=== PATIENT | male | born 1990 | race American Indian/Alaskan Native ===

== ENCOUNTER 2019-01-18 20:50 | Emergency (ER) | payer SELFPAY ==
[2019-01-18 21:04] VITALS: RESP 18; BMI 22.1
[2019-01-18] MEDS ORDERED: Albuterol 0.083% Inhal Sol (2.5 mg/3 mL) UD IH STA (21:17)
--- NOTE | 2019-01-18 21:34 | ED PDOC ---
Arrival/HPI - General Historian: Patient - History of Present Illness Narrative History of Present Illness (Text): 01/18/19 21:23 28-year-old male presents today with a 2 week history of cough, nasal congestion, sore throat, and subjective fevers. no cp or sob. pt states cough is productive. no abdominal pain. no vomiting/diarrhea. no back pain. no medications taken at home. <Britney Herrera - Last Filed: 01/18/19 23:03> <Domingo High - Last Filed: 01/18/19 23:25> - General Chief Complaint: Cough, Cold, Congestion Time Seen by Provider: 01/18/19 20:53 Past Medical History - Provider Review Nursing Documentation Reviewed: Yes - Travel History Have you recently traveled outside [place] w/in the past 3 mons?: No - Pulmonary Hx Asthma: Yes - Psychiatric Hx Substance Use: Yes <Britney Herrera - Last Filed: 01/18/19 23:03> Family/Social History - Physician Review Nursing Documentation Reviewed: Yes Family/Social History: Unknown Family HX Smoking Status: Never Smoked Hx Alcohol Use: Yes Frequency of alcohol use: Socially Hx Substance Use: Yes Substance used: marijuana <Britney Herrera - Last Filed: 01/18/19 23:03> Allergies/Home Meds <Britney Herrera - Last Filed: 01/18/19 23:03> <Domingo High - Last Filed: 01/18/19 23:25> Allergies/Adverse Reactions: Allergies No Known Allergies Allergy (Verified 01/18/19 21:03) Review of Systems - Review of Systems Constitutional: Fevers. absent: Fatigue ENT: Sore Throat, Sinus Congestion Respiratory: Cough. absent: SOB Cardiovascular: absent: Chest Pain, Palpitations Gastrointestinal: absent: Abdominal Pain, Nausea, Vomiting Genitourinary Male: absent: Dysuria, Frequency Musculoskeletal: absent: Arthralgias, Back Pain, Neck Pain Skin: absent: Rash, Pruritis Neurological: absent: Headache, Dizziness Psychiatric: absent: Anxiety, Depression <Britney Herrera - Last Filed: 01/18/19 23:03> Physical Exam Vital Signs Reviewed: Yes Vital Signs Temp Pulse Resp BP Pulse Ox 01/18/19 21:04 98.3 F 89 18 126/66 98 Temperature: Afebrile Blood Pressure: Normal Pulse: Regular Respiratory Rate: Normal Appearance: Positive for: Well-Appearing, Non-Toxic, Comfortable Pain Distress: None Mental Status: Positive for: Alert and Oriented X 3 - Systems Exam Head: Present: Atraumatic Pupils: Present: PERRL Extroacular Muscles: Present: EOMI Conjunctiva: Present: Normal Ears: Present: Normal Mouth: Present: Moist Mucous Membranes. No: Drooling, Trismus Pharnyx: No: Normal (+ post nasal drip), ERYTHEMA, EXUDATE, TONSILS ENLARGED, Peritonsilar Swelling, Uvular Deviation, Muffled/Hoarse Voice Nose (External): Present: Atraumatic Nose (Internal): Present: Normal Inspection Neck: Present: Normal Range of Motion Respiratory/Chest: Present: Clear to Auscultation, Good Air Exchange. No: Respiratory Distress, Accessory Muscle Use Cardiovascular: Present: Regular Rate and Rhythm, Normal S1, S2. No: Murmurs Abdomen: No: Tenderness Upper Extremity: Present: Normal ROM Neurological: Present: GCS=15, Speech Normal Skin: Present: Warm, Dry, Normal Color. No: Rashes Psychiatric: Present: Alert, Oriented x 3 <Britney Herrera - Last Filed: 01/18/19 23:03> Vital Signs Temp Pulse Resp BP Pulse Ox 01/18/19 21:04 98.3 F 89 18 126/66 98 <Domingo High - Last Filed: 01/18/19 23:25> Medical Decision Making ED Course and Treatment: 01/18/19 22:06 Patient is nontoxic well-appearing in no distress. Vital signs are stable. Chest x-ray: albuterol neb given zithromax po pt resting comfortable in no distress. I advised follow up with primary care physician within the next 2 days. I advised increase fluids and return if symptoms worsen persist or if new symptoms develop. Patient verbalizes understanding of discharge instructions and need for immediate followup. All aspects of this case were discussed the attending of record. IMPRESSION; cough Motrin one tablet every 6 hours as needed for pain/fever reduction albuterol; 2 puffs every 4-6 hours as needed Zithromax one tablet once daily x4 days FLonase; 2 sprays each nostril once daily. Increase fluids Followup with primary care physician the next 2 days Return if symptoms worsen persist or if new symptoms develop - RAD Interpretation Radiology Orders: 01/18/19 21:17 CHEST TWO VIEWS (PA/LAT) [RAD] Stat - Medication Orders Current Medication Orders: Discontinued Medications Albuterol Sulfate (Albuterol 0.083% Inhal Sabrina (2.5 Mg/3 Ml) Ud) 2.5 mg IH STAT STA Stop: 01/18/19 21:18 <Britney Herrera - Last Filed: 01/18/19 23:03> - RAD Interpretation Radiology Orders: 01/18/19 21:17 CHEST TWO VIEWS (PA/LAT) [RAD] Stat - Medication Orders Current Medication Orders: Discontinued Medications Albuterol Sulfate (Albuterol 0.083% Inhal Sabrina (2.5 Mg/3 Ml) Ud) 2.5 mg IH STAT STA Stop: 01/18/19 21:18 Last Admin: 01/18/19 21:21 Dose: 2.5 mg Azithromycin (Zithromax) 500 mg PO STAT STA; Protocol Stop: 01/18/19 22:31 Last Admin: 01/18/19 22:44 Dose: 500 mg <Domingo High - Last Filed: 01/18/19 23:25> - 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 <Domingo High - Last Filed: 01/18/19 23:25> Disposition/Present on Arrival - Present on Arrival Any Indicators Present on Arrival: No History of DVT/PE: No History of Uncontrolled Diabetes: No Urinary Catheter: No History of Decub. Ulcer: No History Surgical Site Infection Following: None - Disposition Have Diagnosis and Disposition been Completed?: Yes Disposition Time: 22:07 Patient Plan: Discharge <Britney Herrera - Last Filed: 01/18/19 23:03> <Domingo High - Last Filed: 01/18/19 23:25> - Disposition Diagnosis: Cough Disposition: HOME/ ROUTINE Patient Problems: Current Active Problems Problem Status Onset Cough Acute Condition: GOOD Discharge Instructions (ExitCare): Cough, Adult (DC) Additional Instructions: Motrin one tablet every 6 hours as needed for pain/fever reduction albuterol inhaler; 2 puffs every 4-6 hours as needed albuterol nebulizer; 3 times daily as needed Zithromax one tablet once daily x4 days FLonase; 2 sprays each nostril once daily. Increase fluids Followup with primary care physician the next 2 days Return if symptoms worsen persist or if new symptoms develop Prescriptions: Albuterol HFA [Ventolin HFA 90 mcg/actuation (8 g)] 2 puff IH [id number] PRN #1 inhaler PRN Reason: Cough Albuterol 0.083% [Albuterol 0.083% Inhal Sabrina (2.5 mg/3 ml) UD] 1 vial IH TID PRN #1 packet PRN Reason: Cough Azithromycin [Zithromax] 250 mg PO DAILY #4 tab Fluticasone Nasal [Flonase] 2 spr NS DAILY #1 spr Ibuprofen [Motrin] 600 mg PO Q6H PRN #20 tab PRN Reason: pain/fever reduction Nebulizer [Compact Compressor Nebulizer] 1 dev XX PRN PRN #1 dev PRN Reason: Cough Referrals: Marianela Chew MD [Medical Doctor] - Follow up with primary [facility] [Outside] - Follow up with primary Forms: [employer] ([place]), WORK NOTE
[2019-01-19 00:33] VITALS: BP 128/68; PULSE 60; TEMP 98.2; O2SAT 100
--- NOTE | 2019-01-19 10:03 | RAD ---
Date of service: 01/18/2019 HISTORY: cough x 2 weeks COMPARISON: No prior. TECHNIQUE: Chest PA and lateral views FINDINGS: LUNGS: No active pulmonary disease. PLEURA: No significant pleural effusion identified. No pneumothorax apparent. CARDIOVASCULAR: No aortic atherosclerotic calcification present. Normal cardiac size. No pulmonary vascular congestion. OSSEOUS STRUCTURES: No significant abnormalities. VISUALIZED UPPER ABDOMEN: Normal. OTHER FINDINGS: None. IMPRESSION: No active disease.
== END 2019-01-18 22:57 | disposition home or self-care (01) ==
LOC: ED 20:50
DX: R05 Cough (principal)